=== PATIENT | female | born 1990 | race African-American/Black ===

== ENCOUNTER 2018-01-09 23:22 | Emergency (ER) | payer MEDICAID, OTHER ==
[~2018-01-09] VITALS: Ht 160 cm; Wt 54.0 kg
[2018-01-10 02:58] LABS: BASOPHILS % 0.2 % (0.0-2.0); EOSINOPHILS % 1.6 % (0.0-5.0); HEMATOCRIT. 41.1 % (36.0-48.0); HEMOGLOBIN. 14.4 g/dL (12.0-16.0); LYMPHOCYTES % 42.3 % (20.0-50.0); MEAN CORPUSCULAR HEMOGLOBIN 31.3 pg (28.0-32.0); MEAN CORPUSCULAR VOLUME 89.1 fL (81.0-99.0); MEAN PLATELET VOLUME 6.9 fl (7.4-10.4); NEUTROPHILS % 47.9 % (40.0-76.0); PLATELET 210 x1000/uL (130-400); RED BLOOD CELL COUNT 4.61 mill/uL (4.2-5.4); RED CELL DISTRIBUTION WIDTH 14.6 % (11.6-14.6)
[2018-01-10 02:58] LABS: CLARITY URINE CLEAR (CLEAR); COLOR URINE YELLOW (YELLOW); KETONES URINE 2+ (NEGATIVE); LEUKOCYTE ESTERASE URINE NEGATIVE (NEGATIVE); NITRITE URINE NEGATIVE (NEGATIVE); OCCULT BLOOD URINE NEGATIVE (NEGATIVE); PROTEIN URINE TRACE (NEGATIVE); SPECIFIC GRAVITY URINE 1.021 (1.005-1.030); UROBILINOGEN URINE 0.2 E.U./dL (0.2-1.0)
[2018-01-10 03:05] LABS: CHLORIDE 108 mEq/L (98-107)
[2018-01-10 03:13] LABS: ETHANOL BLOOD < 10 mg/dL
[2018-01-10] MEDS ORDERED: LORAZEPAM 2MG/ML CPJ IM ONE (03:15)
[2018-01-10 03:17] LABS: *AMPHETAMINES SCREEN URINE NEGATIVE (NEGATIVE); *BARBITURATES SCREEN URINE NEGATIVE (NEGATIVE); *BENZODIAZEPINES SCREEN URINE NEGATIVE (NEGATIVE); *COCAINE SCREEN URINE NEGATIVE (NEGATIVE); METHADONE URINE SCREEN NEGATIVE (NEGATIVE); OPIATES URINE SCREEN NEGATIVE (NEGATIVE)
[2018-01-10 03:18] LABS: PHENCYCLIDINE URINE SCREEN NEGATIVE (NEGATIVE)
[2018-01-10 03:33] LABS: CANNABINOID URINE SCREEN PRESUMTIVE POSITIVE (NEGATIVE)
[2018-01-10] MEDS ORDERED: OLANZAPINE 10 MG/VIAL IM ONE (03:45)
[2018-01-10 14:07] VITALS: BP 118/84
== END 2018-01-10 14:33 | disposition home or self-care (01) ==
LOC: ER 23:33
DX: F29 Unspecified psychosis not due to a substance or known physiological condition (principal); J45.909 Unspecified asthma, uncomplicated; F15.10 Other stimulant abuse, uncomplicated; F17.200 Nicotine dependence, unspecified, uncomplicated; F12.10 Cannabis abuse, uncomplicated
CPT/HCPCS: 36415; 80053; 80305; 80307; 80329; 81003; 81025; 85025; 96372; 99284; G0482; J2060; J3490; Z7610

== ENCOUNTER 2018-01-12 03:49 | Emergency (ER) | payer MEDICAID ==
[~2018-01-12] VITALS: Ht 177.8 cm; Wt 50.0 kg
[2018-01-12] MEDS ORDERED: ACETAMINOPHEN 325MG TABLET PO STA (05:00)
[2018-01-12 06:20] VITALS: BP 95/38
== END 2018-01-12 07:13 | disposition left against medical advice (07) ==
LOC: ER 03:49
DX: M54.5 Low back pain (principal); R10.84 Generalized abdominal pain; F17.200 Nicotine dependence, unspecified, uncomplicated; V18.0XXA Pedal cycle driver injured in noncollision transport accident in nontraffic accident, initial encounter; Y93.89 Activity, other specified; Y92.89 Other specified places as the place of occurrence of the external cause
CPT/HCPCS: 99283

== ENCOUNTER 2018-09-03 10:25 | Emergency (ER) | payer MEDICAID ==
[~2018-09-03] VITALS: Ht 162.6 cm; Wt 60.0 kg
[2018-09-03 11:17] LABS: BASOPHILS % 0.3 % (0.0-2.0); EOSINOPHILS % 2.3 % (0.0-5.0); HEMATOCRIT. 35.4 % (36.0-48.0); HEMOGLOBIN. 12.7 g/dL (12.0-16.0); LYMPHOCYTES % 19.6 % (20.0-50.0); MEAN CORPUSCULAR HEMOGLOBIN 33.5 pg (28.0-32.0); MEAN CORPUSCULAR VOLUME 93.1 fL (81.0-99.0); MEAN PLATELET VOLUME 6.6 fl (7.4-10.4); MONOCYTES % 5.9 % (2.0-8.0); NEUTROPHILS % 71.9 % (40.0-76.0); PLATELET 191 x1000/uL (130-400); RED CELL DISTRIBUTION WIDTH 12.5 % (11.6-14.6)
[2018-09-03 11:23] LABS: CHLORIDE 106 mEq/L (98-107)
[2018-09-03 11:30] LABS: CLARITY URINE CLEAR (CLEAR); COLOR URINE YELLOW (YELLOW); KETONES URINE NEGATIVE (NEGATIVE); LEUKOCYTE ESTERASE URINE TRACE (NEGATIVE); NITRITE URINE NEGATIVE (NEGATIVE); OCCULT BLOOD URINE NEGATIVE (NEGATIVE); PROTEIN URINE NEGATIVE (NEGATIVE); SPECIFIC GRAVITY URINE 1.002 (1.005-1.030); UROBILINOGEN URINE 0.2 E.U./dL (0.2-1.0)
[2018-09-03 11:47] LABS: B-HCG QUANTITATIVE 120719 mIU/mL (<3)
[2018-09-03 13:22] VITALS: BP 114/61
== END 2018-09-03 14:43 | disposition home or self-care (01) ==
LOC: ER 10:25
DX: J45.909 Unspecified asthma, uncomplicated (principal); F99 Mental disorder, not otherwise specified; O20.0 Threatened abortion; O99.331 Smoking (tobacco) complicating pregnancy, first trimester; O26.891 Other specified pregnancy related conditions, first trimester; Z3A.01 Less than 8 weeks gestation of pregnancy; Z71.6 Tobacco abuse counseling
CPT/HCPCS: 36415; 76801; 76802; 84702; 86850; 86900; 99284; 99406

== ENCOUNTER 2018-10-17 06:25 | Emergency (ER) | payer MEDICAID ==
[~2018-10-17] VITALS: Ht 167.6 cm; Wt 55.0 kg
[2018-10-17 06:44] VITALS: BP 94/50
[2018-10-17 07:13] LABS: CHLORIDE 108 mEq/L (98-107)
[2018-10-17 07:18] LABS: BASOPHILS % 0.1 % (0.0-2.0); EOSINOPHILS % 3.5 % (0.0-5.0); HEMATOCRIT. 29.9 % (36.0-48.0); HEMOGLOBIN. 10.8 g/dL (12.0-16.0); LYMPHOCYTES % 29.7 % (20.0-50.0); MEAN CORPUSCULAR HEMOGLOBIN 34.3 pg (28.0-32.0); MEAN CORPUSCULAR VOLUME 95.2 fL (81.0-99.0); MEAN PLATELET VOLUME 6.6 fl (7.4-10.4); MONOCYTES % 5.9 % (2.0-8.0); NEUTROPHILS % 60.8 % (40.0-76.0); PLATELET 178 x1000/uL (130-400); RED BLOOD CELL COUNT 3.14 mill/uL (4.2-5.4); RED CELL DISTRIBUTION WIDTH 12.7 % (11.6-14.6)
[2018-10-17 07:39] LABS: B-HCG QUANTITATIVE 87553 mIU/mL (<3)
== END 2018-10-17 09:37 | disposition home or self-care (01) ==
LOC: ER 06:25
DX: O20.0 Threatened abortion (principal); O26.891 Other specified pregnancy related conditions, first trimester; J45.909 Unspecified asthma, uncomplicated; Z3A.14 14 weeks gestation of pregnancy
CPT/HCPCS: 36415; 76805; 76810; 80053; 81025; 84702; 85025; 86850; 86900; 86901; 99284; Z7610

== ENCOUNTER 2018-10-18 15:25 | Emergency (ER) | payer MEDICAID ==
[~2018-10-18] VITALS: Ht 165.1 cm; Wt 59.0 kg
[2018-10-18 16:10] VITALS: BP 115/85
[2018-10-18] MEDS ORDERED: ACETAMINOPHEN 325MG TABLET PO PRN (16:45)
[2018-10-18 17:02] LABS: CLARITY URINE CLEAR (CLEAR); COLOR URINE YELLOW (YELLOW); KETONES URINE NEGATIVE (NEGATIVE); LEUKOCYTE ESTERASE URINE NEGATIVE (NEGATIVE); NITRITE URINE NEGATIVE (NEGATIVE); OCCULT BLOOD URINE 3+ (NEGATIVE); PROTEIN URINE NEGATIVE (NEGATIVE); SPECIFIC GRAVITY URINE 1.011 (1.005-1.030); UROBILINOGEN URINE 0.2 E.U./dL (0.2-1.0)
== END 2018-10-18 17:48 | disposition left against medical advice (07) ==
LOC: ER 15:36
DX: O46.92 Antepartum hemorrhage, unspecified, second trimester (principal); O99.512 Diseases of the respiratory system complicating pregnancy, second trimester; Z3A.14 14 weeks gestation of pregnancy
CPT/HCPCS: 81025; 99283

== ENCOUNTER 2019-03-04 12:19 | Observation (INO) | payer MEDICAID, OTHER ==
[~2019-03-04] VITALS: Ht 157.5 cm; Wt 63.5 kg
[2019-03-04 14:44] LABS: CLARITY URINE CLEAR (CLEAR); COLOR URINE YELLOW (YELLOW); KETONES URINE NEGATIVE (NEGATIVE); LEUKOCYTE ESTERASE URINE 2+ (NEGATIVE); NITRITE URINE NEGATIVE (NEGATIVE); OCCULT BLOOD URINE NEGATIVE (NEGATIVE); PROTEIN URINE NEGATIVE (NEGATIVE); SPECIFIC GRAVITY URINE 1.007 (1.005-1.030); UROBILINOGEN URINE 0.2 E.U./dL (0.2-1.0)
[2019-03-04] MEDS: CEFAZOLIN 2,000 MG in DEXT 5% WATER 100 ML IV SCH ×2 (16:45→16:46)
[2019-03-04] MEDS ORDERED: PNV1TABL50 MT (18:15)
== END 2019-03-04 18:25 | disposition home or self-care (01) ==
LOC: 8 EST LDRP 12:19
PROVIDERS: ADMIT Obstetrics & Gynecology; ATTEND Obstetrics & Gynecology
DX: O62.9 Abnormality of forces of labor, unspecified (principal); O26.893 Other specified pregnancy related conditions, third trimester; M54.9 Dorsalgia, unspecified; Z3A.33 33 weeks gestation of pregnancy
CPT/HCPCS: 76805; 76810; 81003; 96365; 99281; G0378; J0690; J7060; 96360

== ENCOUNTER 2019-03-16 18:30 | Observation (INO) | payer MEDICAID ==
[~2019-03-16] VITALS: Ht 157.5 cm; Wt 63.5 kg
[~2019-03-16 18:30] MED LIST: PNV1TABL50 MT
[2019-03-16] MEDS ORDERED: LACTATED RINGERS 1,000 ML IV SCH (19:17)
[2019-03-16] MEDS ORDERED: TERBUTALINE SULFATE 1MG/ML VIAL SUBCUT NR (20:45)
[2019-03-16 20:50] LABS: EOSINOPHILS % 4.2 % (0.0-5.0); HEMATOCRIT. 33.4 % (36.0-48.0); HEMOGLOBIN. 11.6 g/dL (12.0-16.0); LYMPHOCYTES % 24.7 % (20.0-50.0); MEAN CORPUSCULAR HEMOGLOBIN 33.5 pg (28.0-32.0); MEAN CORPUSCULAR VOLUME 96.1 fL (81.0-99.0); MEAN PLATELET VOLUME 7.6 fl (7.4-10.4); MONOCYTES % 5.5 % (2.0-8.0); NEUTROPHILS % 65.6 % (40.0-76.0); PLATELET 124 x1000/uL (130-400); RED BLOOD CELL COUNT 3.47 mill/uL (4.2-5.4); RED CELL DISTRIBUTION WIDTH 13.9 % (11.6-14.6)
[2019-03-16 20:51] LABS: CHLORIDE 109 mEq/L (98-107)
[2019-03-16 20:59] LABS: CLARITY URINE CLOUDY (CLEAR); COLOR URINE YELLOW (YELLOW); KETONES URINE NEGATIVE (NEGATIVE); LEUKOCYTE ESTERASE URINE 1+ (NEGATIVE); NITRITE URINE NEGATIVE (NEGATIVE); OCCULT BLOOD URINE NEGATIVE (NEGATIVE); PH URINE 6.5 (4.5-8.0); PROTEIN URINE NEGATIVE (NEGATIVE); SPECIFIC GRAVITY URINE 1.004 (1.005-1.030); UROBILINOGEN URINE 0.2 E.U./dL (0.2-1.0)
[2019-03-16 21:09] LABS: CANNABINOID URINE SCREEN NEGATIVE (NEGATIVE); OPIATES URINE SCREEN NEGATIVE (NEGATIVE); PHENCYCLIDINE URINE SCREEN NEGATIVE (NEGATIVE)
[2019-03-16 21:10] LABS: *AMPHETAMINES SCREEN URINE NEGATIVE (NEGATIVE); *BARBITURATES SCREEN URINE NEGATIVE (NEGATIVE); *BENZODIAZEPINES SCREEN URINE NEGATIVE (NEGATIVE); *COCAINE SCREEN URINE NEGATIVE (NEGATIVE); METHADONE URINE SCREEN NEGATIVE (NEGATIVE)
[2019-03-16 21:29] LABS: HEPATITIS B SURFACE ANTIGEN NEGATIVE
[2019-03-17] MEDS ORDERED: ZANTAC (00:36)
[2019-03-17] MEDS ORDERED: PYRIDOXINE HCL (00:36)
[2019-03-17] MEDS ORDERED: ALBUTEROL (00:36)
[2019-03-17] MEDS ORDERED: FERROUS SULFATE (00:36)
== END 2019-03-17 00:51 | disposition home or self-care (01) ==
LOC: 8 EST LDRP 18:30 → 8 EST A/PP 18:35
PROVIDERS: ADMIT Obstetrics & Gynecology; ATTEND Obstetrics & Gynecology
DX: O26.893 Other specified pregnancy related conditions, third trimester (principal); R10.9 Unspecified abdominal pain; O62.9 Abnormality of forces of labor, unspecified; Z98.891 History of uterine scar from previous surgery; Z3A.35 35 weeks gestation of pregnancy
CPT/HCPCS: 36415; 80053; 80305; 81003; 85025; 86592; 86703; 86762; 86850; 86900; 86901; 87340; 96372; 99281; G0378; J3105; 96360; 96361

== ENCOUNTER 2019-03-19 15:40 | Inpatient (IN) | payer MEDICAID ==
[~2019-03-19] VITALS: Ht 157.5 cm; Wt 64.9 kg
[~2019-03-19 15:40] MED LIST changes: +ALBUTEROL; +FERROUS SULFATE; +PYRIDOXINE HCL; +ZANTAC
[2019-03-19] MEDS ORDERED: DEXT 5%/LR + PITOCIN 20UNITS/L 1,000 ML IV SCH ×2 (15:55→19:00)
[2019-03-19] MEDS ORDERED: DEXT 5%/LACTATED RINGERS 1,000 ML IV SCH (15:55)
[2019-03-19] MEDS ORDERED: NALOXONE HCL 0.4 MG/ML 1ML VIAL IM PRN (16:00)
[2019-03-19] MEDS ORDERED: METHYLERGONOVINE MALEATE 0.2 MG/ML IM PRN (16:00)
[2019-03-19] MEDS ORDERED: RHO(D) IMMUNE GLOBULIN 300 MCG/SYR IM NR (16:00)
[2019-03-19] MEDS ORDERED: CARBOPROST TROMETHAMINE 250 MCG/ML AMPUL IM PRN (16:00)
[2019-03-19] MEDS ORDERED: DEXAMETHASONE 4MG/ML 1ML VIAL ONE (16:44)
[2019-03-19] MEDS ORDERED: ONDANSETRON HCL 4MG/2ML INJ ONE (16:44)
[2019-03-19] MEDS ORDERED: SODIUM CHLORIDE 0.9% 10ML VIAL ONE ×3 (16:44→16:51)
[2019-03-19] MEDS ORDERED: CEFAZOLIN SODIUM 1000MG/VIAL ONE (16:44)
[2019-03-19] MEDS ORDERED: OXYTOCIN 10 UNITS/ML 1ML ONE (16:44)
[2019-03-19] MEDS ORDERED: METOCLOPRAMIDE HCL 10MG/2ML VIAL ONE (16:44)
[2019-03-19 16:45] LABS: BASOPHILS % 0.2 % (0.0-2.0); EOSINOPHILS % 2.5 % (0.0-5.0); HEMATOCRIT. 36.9 % (36.0-48.0); HEMOGLOBIN. 12.9 g/dL (12.0-16.0); LYMPHOCYTES % 19.8 % (20.0-50.0); MEAN CORPUSCULAR HEMOGLOBIN 33.8 pg (28.0-32.0); MEAN CORPUSCULAR VOLUME 96.7 fL (81.0-99.0); MEAN PLATELET VOLUME 7.7 fl (7.4-10.4); MONOCYTES % 5.6 % (2.0-8.0); NEUTROPHILS % 71.9 % (40.0-76.0); PLATELET 135 x1000/uL (130-400); RED BLOOD CELL COUNT 3.82 mill/uL (4.2-5.4); RED CELL DISTRIBUTION WIDTH 13.8 % (11.6-14.6)
[2019-03-19] MEDS ORDERED: PHENYLEPHRINE HCL 10 MG/ML 1ML (IV VIAL) IV ONE (16:51)
[2019-03-19 16:54] LABS: KETONES URINE NEGATIVE (NEGATIVE); LEUKOCYTE ESTERASE URINE 1+ (NEGATIVE); NITRITE URINE NEGATIVE (NEGATIVE); OCCULT BLOOD URINE 3+ (NEGATIVE); PROTEIN URINE 1+ (NEGATIVE); SPECIFIC GRAVITY URINE 1.006 (1.005-1.030); UROBILINOGEN URINE 0.2 E.U./dL (0.2-1.0)
[2019-03-19 16:59] LABS: CLARITY URINE CLOUDY (CLEAR); COLOR URINE BLOODY (YELLOW)
[2019-03-19 17:00] LABS: *BENZODIAZEPINES SCREEN URINE NEGATIVE (NEGATIVE)
[2019-03-19 17:01] LABS: *AMPHETAMINES SCREEN URINE NEGATIVE (NEGATIVE); *COCAINE SCREEN URINE NEGATIVE (NEGATIVE); CANNABINOID URINE SCREEN NEGATIVE (NEGATIVE); METHADONE URINE SCREEN NEGATIVE (NEGATIVE); OPIATES URINE SCREEN NEGATIVE (NEGATIVE); PHENCYCLIDINE URINE SCREEN NEGATIVE (NEGATIVE)
[2019-03-19 17:02] LABS: *BARBITURATES SCREEN URINE NEGATIVE (NEGATIVE)
[2019-03-19] MEDS ORDERED: PENICILLIN G POTASSIUM 5 MMU in DEXT 5% WATER 100 ML IV NR (17:30)
[2019-03-19] MEDS ORDERED: CITRIC ACID/SODIUM CITRATE SOLN 30ML UDC PO NR (17:45)
[2019-03-19] MEDS ORDERED: KETOROLAC 60MG/2ML VIAL IM ONE (18:04)
[2019-03-19] MEDS ORDERED: BISACODYL 10MG SUPP PR PRN (18:30)
[2019-03-19] MEDS ORDERED: HYDROCODONE/ACETAMINOPHEN 5/325MG TABLET PO PRN (18:30)
[2019-03-19] MEDS ORDERED: RHO(D) IMMUNE GLOBULIN 300 MCG/SYR IM PRN (18:30)
[2019-03-19] MEDS ORDERED: HEMORRHOIDAL SUPP PR PRN (18:30)
[2019-03-19] MEDS ORDERED: KETOROLAC 30MG/ML VIAL IV PRN (18:45)
[2019-03-19] MEDS ORDERED: HYDROMORPHONE HCL/PF 2MG/ML CPJ IV PRN (18:45)
[2019-03-19] MEDS ORDERED: ONDANSETRON HCL 4MG/2ML INJ IV PRN (18:45)
[2019-03-19 19:07] LABS: INR 0.9; PARTIAL THROMBOPLASTIN TIME 34.5 sec (23.4-31.0); PROTHROMBIN TIME 9.6 sec (9.6-11.0)
[2019-03-19] MEDS: ONDANSETRON HCL 4MG/2ML INJ IV PRN (20:12)
[2019-03-19] MEDS ORDERED: DIPHENHYDRAMINE 50MG/ML VIAL IV NR (20:15)
[2019-03-19 21:00] VITALS: BP 128/66
[2019-03-19] MEDS ORDERED: PENICILLIN G POTASSIUM 2.5 MMU in DEXTROSE 5% WATER 50 ML IV SCH (21:30)
[2019-03-19 22:00] VITALS: BP 88/54
[2019-03-19 23:00] VITALS: BP 90/60
[2019-03-20] MEDS ORDERED: KETOROLAC 30MG/ML VIAL IV PRN (02:00)
[2019-03-20] MEDS ORDERED: DIPHENHYDRAMINE 50MG/ML VIAL IV PRN (02:00)
[2019-03-20] MEDS: ONDANSETRON HCL 4MG/2ML INJ IV PRN (02:08)
[2019-03-20 02:22] VITALS: BP 130/68
[2019-03-20 03:00] VITALS: BP 112/66
[2019-03-20] MEDS ORDERED: METOCLOPRAMIDE HCL 10MG/2ML VIAL IV SCH (05:45)
[2019-03-20 06:10] VITALS: BP 88/52
[2019-03-20 07:36] LABS: BASOPHILS % 0.1 % (0.0-2.0); EOSINOPHILS % 0.1 % (0.0-5.0); HEMATOCRIT. 26.6 % (36.0-48.0); HEMOGLOBIN. 9.2 g/dL (12.0-16.0); LYMPHOCYTES % 14.6 % (20.0-50.0); MEAN CORPUSCULAR HEMOGLOBIN 33.8 pg (28.0-32.0); MEAN CORPUSCULAR VOLUME 97.6 fL (81.0-99.0); MEAN PLATELET VOLUME 7.6 fl (7.4-10.4); MONOCYTES % 8.2 % (2.0-8.0); PLATELET 114 x1000/uL (130-400); RED BLOOD CELL COUNT 2.72 mill/uL (4.2-5.4); RED CELL DISTRIBUTION WIDTH 13.8 % (11.6-14.6)
[2019-03-20 07:45] VITALS: BP 96/59
[2019-03-20] MEDS ORDERED: PRENATAL VIT/FE FUMARATE/FA TABLET PO SCH (09:00)
[2019-03-20] MEDS: FERROUS SULFATE 325MG TABLET PO SCH (18:25)
[2019-03-20] MEDS: DOCUSATE SODIUM 100MG CAPSULE PO SCH ×2 (18:26→21:42)
[2019-03-20 20:10] VITALS: BP 108/61
[2019-03-20] MEDS: MAGNESIUM/ALUMINUM HYDROXIDE/SIMETHICONE 30ML UDC PO SCH (21:41)
[2019-03-20] MEDS: SIMETHICONE 80MG TABLET CHEW PO SCH (21:42)
[2019-03-21] MEDS: ACETAMINOPHEN WITH CODEINE 300/30MG TABLET PO PRN ×2 (01:01→20:58)
[2019-03-21 04:30] VITALS: BP 96/56
[2019-03-21 08:00] VITALS: BP 106/62
[2019-03-21] MEDS: DOCUSATE SODIUM 100MG CAPSULE PO SCH (09:45)
[2019-03-21] MEDS: FERROUS SULFATE 325MG TABLET PO SCH (09:45)
[2019-03-21] MEDS: IBUPROFEN 400MG TABLET PO PRN ×2 (09:45→15:42)
[2019-03-21 14:30] VITALS: BP 99/60
[2019-03-21 20:00] VITALS: BP 102/62
[2019-03-21] MEDS: SIMETHICONE 80MG TABLET CHEW PO SCH (20:48)
[2019-03-21] MEDS: MAGNESIUM/ALUMINUM HYDROXIDE/SIMETHICONE 30ML UDC PO SCH (20:48)
[2019-03-22] VITALS: BP 113/64
[2019-03-22 04:00] VITALS: BP 105/65
[2019-03-22] MEDS ORDERED: HYDR-3512 PO (07:02)
[2019-03-22] MEDS ORDERED: IBUP-2030 MT (07:03)
[2019-03-22 07:45] VITALS: BP 112/72
[2019-03-22] MEDS: MAGNESIUM/ALUMINUM HYDROXIDE/SIMETHICONE 30ML UDC PO SCH ×2 (07:51→21:15)
[2019-03-22] MEDS: FERROUS SULFATE 325MG TABLET PO SCH (07:52)
[2019-03-22] MEDS: DOCUSATE SODIUM 100MG CAPSULE PO SCH ×2 (07:52→21:14)
[2019-03-22] MEDS: IBUPROFEN 400MG TABLET PO PRN ×2 (07:52→21:56)
[2019-03-22] MEDS: SIMETHICONE 80MG TABLET CHEW PO SCH ×2 (07:53→21:15)
[2019-03-22 16:30] VITALS: BP 102/66
[2019-03-22 19:30] VITALS: BP 101/71
[2019-03-23 05:34] VITALS: BP 100/68
[2019-03-23 08:20] VITALS: BP 110/60
== END 2019-03-23 12:30 | disposition home or self-care (01) | DRG 540 ==
LOC: 8 EST LDRP 15:40 → UNDOADMOB 15:46 → INTOOBSV 15:47 → OBSVTOIN 15:47 → 8 EST A/PP 21:41
PROVIDERS: ADMIT Obstetrics & Gynecology; ATTEND Obstetrics & Gynecology
PROC: 10D00Z1 Extraction of Products of Conception, Low, Open Approach (ICD-10-PCS; principal; 2019-03-19)
DX: O45.93 Premature separation of placenta, unspecified, third trimester (principal); O60.14X1 Preterm labor third trimester with preterm delivery third trimester, fetus 1; O60.14X2 Preterm labor third trimester with preterm delivery third trimester, fetus 2; O30.003 Twin pregnancy, unspecified number of placenta and unspecified number of amniotic sacs, third trimester; Z37.2 Twins, both liveborn; O34.211 Maternal care for low transverse scar from previous cesarean delivery; Z3A.35 35 weeks gestation of pregnancy
CPT/HCPCS: 36415; 76805; 76810; 80305; 81003; 86592; 86703; 86762; 86850; 86900; 86920; 88307; 99281; G0378; J0690; J1100; J1200; J1885; J2370; J2405; J2540; J2590; J2765; J7060; J7121; A4315